=== PATIENT | female | born 1960 | race Caucasian/White ===

== ENCOUNTER 2018-11-05 07:55 | Emergency (ER) | payer OTHER, MEDICAID ==
[~2018-11-05] VITALS: Ht 157.5 cm; Wt 84.1 kg
[~2018-11-05 07:55] MED LIST: CLOP75TA35 PO; DOXY100T2 PO; GUAI-178 PO; HYDR-4383 PO; HYDR12.5 PO; PRAM0.122 PO; TRAM50TA2 PO; ZOLP5TAB8 PO
[2018-11-05 08:33] LABS: BASOPHILS # (AUTO) 0.2 X10'3 (0-0.2); BASOPHILS % (AUTO) 1.3 % (0-1); EOSINOPHILS # (AUTO) 0.3 X10'3 (0-0.9); EOSINOPHILS % (AUTO) 1.4 % (0-6); HEMATOCRIT 47.5 % (35.0-45.0); HEMOGLOBIN 15.6 g/dl (12.0-16.0); LYMPHOCYTES # (AUTO) 3.2 X10'3 (1.1-4.8); LYMPHOCYTES % (AUTO) 17.8 % (21-51); MEAN CORPUSCULAR HGB CONC 32.9 g/dL (33.0-36.5); MEAN CORPUSCULAR VOLUME 82.1 FL (78-98); MEAN PLATELET VOLUME 8.3 FL (7.4-10.4); MONOCYTES # (AUTO) 1.3 X10'3 (0-0.9); NEUTROPHILS # (AUTO) 13.2 X10'3 (1.8-7.7); NEUTROPHILS % (AUTO) 72.5 % (42-75); PLATELET COUNT 329 X10'3 (140-440); RED BLOOD COUNT 5.79 X10'6 (4.20-5.60); RED CELL DISTRIBUTION WIDTH 13.5 % (11.5-14.5); WHITE BLOOD COUNT 18.2 X10'3 (4.5-11.0)
[2018-11-05] MEDS ORDERED: ketorolac trometh inj. 60 MG/2 ML VIAL IM ONE (08:40)
[2018-11-05] MEDS ORDERED: ondansetron 4mg rapidly disintigrating tab PO ONE (08:40)
[2018-11-05] MEDS ORDERED: HYDROcodone/acetaminophen 5mg/325mg tablet PO ONE (08:40)
[2018-11-05] MEDS ORDERED: benzonatate 100mg capsule PO ONE (08:40)
[2018-11-05 08:44] LABS: ALANINE AMINOTRANSFERASE 38 U/L (12-78); ALBUMIN 3.7 G/DL (3.4-5.0); ALBUMIN/GLOBULIN RATIO 0.9 (1.1-1.5); ALKALINE PHOSPHATASE 116 IU/L (46-116); ANION GAP 11 (8-16); ASPARTATE AMINO TRANSFERASE 23 U/L (10-37); BILIRUBIN,TOTAL 0.4 MG/DL (0.1-1.0); BLOOD UREA NITROGEN 13 MG/DL (7-18); BUN/CREATININE RATIO 16.5 (6.6-38.0); CALCIUM 9.5 MG/DL (8.5-10.1); CHLORIDE 96 MMOL/L (99-107); CREATININE 0.79 MG/DL (0.40-0.90); GLUCOSE 154 MG/DL (70-104); POTASSIUM 3.5 MMOL/L (3.5-5.1); SODIUM 133 MMOL/L (135-145); TOTAL PROTEIN 7.7 G/DL (6.4-8.2); eGFR 74 ML/MIN
[2018-11-05 09:23] LABS: LARGE PLATELETS FEW; PLATELET ESTIMATE NORMAL
[2018-11-05] MEDS ORDERED: HYDR-3965 PO (10:01)
[2018-11-05] MEDS ORDERED: ONDA8TAB6 PO (10:01)
[2018-11-05] MEDS ORDERED: BENZ-16 PO (10:01)
[2018-11-05 10:30] VITALS: BP 152/76
== END 2018-11-05 10:50 | disposition home or self-care (01) ==
LOC: ER 07:56
DX: R07.81 Pleurodynia (principal); J06.9 Acute upper respiratory infection, unspecified; Z86.73 Personal history of transient ischemic attack (TIA), and cerebral infarction without residual deficits; Z88.2 Allergy status to sulfonamides; Z88.0 Allergy status to penicillin; Z88.1 Allergy status to other antibiotic agents; Z91.011 Allergy to milk products; Z79.899 Other long term (current) drug therapy
CPT/HCPCS: 36415; 71046; 80053; 83880; 85025; 96372; 99284; J1885

== ENCOUNTER 2019-02-10 15:16 | Observation (INO) | payer OTHER, MEDICAID ==
[~2019-02-10] VITALS: Ht 157.5 cm; Wt 85.1 kg
[~2019-02-10 15:16] MED LIST changes: +ONDA8TAB6 PO
--- NOTE | 2019-02-10 15:28 | NUR ---
Arrived to ED for level 1 stroke alert, bed 3. pt in CT scan. daughter and at bedside. SOC notified of stroke alert [address] states she is back to normal at this time 1550 Dr. Mcadams from SOC for telemedicine consult. NIHSS 0 will proceed as Level 2 stroke.
[2019-02-10 15:50] LABS: BASOPHILS # (AUTO) 0.1 X10'3 (0-0.2); BASOPHILS % (AUTO) 0.6 % (0-1); EOSINOPHILS # (AUTO) 0.3 X10'3 (0-0.9); EOSINOPHILS % (AUTO) 2.8 % (0-6); HEMATOCRIT 43.9 % (35.0-45.0); HEMOGLOBIN 14.3 g/dl (12.0-16.0); LYMPHOCYTES # (AUTO) 2.5 X10'3 (1.1-4.8); LYMPHOCYTES % (AUTO) 24.2 % (21-51); MEAN CORPUSCULAR HEMOGLOBIN 24.9 PG (27.0-31.0); MEAN CORPUSCULAR HGB CONC 32.7 g/dL (33.0-36.5); MEAN CORPUSCULAR VOLUME 76.1 FL (78-98); MEAN PLATELET VOLUME 7.8 FL (7.4-10.4); MONOCYTES # (AUTO) 0.8 X10'3 (0-0.9); NEUTROPHILS # (AUTO) 6.7 X10'3 (1.8-7.7); NEUTROPHILS % (AUTO) 64.4 % (42-75); PLATELET COUNT 278 X10'3 (140-440); RED BLOOD COUNT 5.77 X10'6 (4.20-5.60); RED CELL DISTRIBUTION WIDTH 16.6 % (11.5-14.5); WHITE BLOOD COUNT 10.3 X10'3 (4.5-11.0)
[2019-02-10 16:02] LABS: ALANINE AMINOTRANSFERASE 30 U/L (12-78); ALBUMIN 3.9 G/DL (3.4-5.0); ALBUMIN/GLOBULIN RATIO 0.9 (1.1-1.5); ALKALINE PHOSPHATASE 116 IU/L (46-116); ANION GAP 5 (8-16); ASPARTATE AMINO TRANSFERASE 23 U/L (10-37); BILIRUBIN,TOTAL 0.4 MG/DL (0.1-1.0); BLOOD UREA NITROGEN 7 MG/DL (7-18); BUN/CREATININE RATIO 8.6 (6.6-38.0); CALCIUM 9.6 MG/DL (8.5-10.1); CHLORIDE 98 MMOL/L (99-107); CREATININE 0.81 MG/DL (0.40-0.90); GLUCOSE 103 MG/DL (70-104); POTASSIUM 3.7 MMOL/L (3.5-5.1); SODIUM 134 MMOL/L (135-145); TOTAL CARBON DIOXIDE 30.9 MMOL/L (24-32); TOTAL PROTEIN 8.2 G/DL (6.4-8.2); eGFR 72 ML/MIN
[2019-02-10 16:03] LABS: PARTIAL THROMBOPLASTIN TIME 29 SECONDS (22-32)
[2019-02-10 16:05] LABS: TROPONIN I < 0.04 NG/ML (0.0-0.05)
[2019-02-10] MEDS ORDERED: metoprolol tartrate 1mg/ml inj IV ONE (16:10)
--- NOTE | 2019-02-10 16:39 | NUR ---
PT STATES HER LEFT FACE IS SLIGHTLY NUMB. NO OTHER SYMPTOMS. INSTRUCTED TO NOTIFY NURSE OF ANY NEW CHANGES. HENRIQUE RICHEY NOTIFIED .
[2019-02-10] MEDS ORDERED: aspirin 81mg tab.chew PO ONE (16:45)
[2019-02-10] MEDS ORDERED: magnesium hydroxide 30ml (MOM) UD suspension PO PRN (16:50)
[2019-02-10] MEDS ORDERED: potassium CL 10mEq/100ml bag 100 ML IV PRN (16:50)
[2019-02-10] MEDS ORDERED: mag hydrox/Alum hydrox/simeth 30ml oral suspension PO PRN (16:50)
[2019-02-10] MEDS ORDERED: potassium Cl 20 mEq SR tablet PO PRN ×2 (16:50)
[2019-02-10] MEDS ORDERED: potassium Cl 40MEQ/NS 500ml 500 ML IV PRN (16:50)
[2019-02-10] MEDS ORDERED: magnesium 2GM in 50ml NS 50 ML IV PRN (16:50)
[2019-02-10] MEDS ORDERED: magnesium 4gm in 100ml NS 100 ML IV PRN (16:50)
[2019-02-10] MEDS ORDERED: ondansetron/PF 4mg/2ml inj IV PRN (16:50)
[2019-02-10] MEDS ORDERED: acetaminophen 325mg tablet PO PRN ×2 (16:50)
[2019-02-10] MEDS ORDERED: magnesium Cl slow-release 64mg tablet PO PRN (16:50)
--- NOTE | 2019-02-10 16:55 | NUR ---
PT. STATES THAT HER "HAND IS FEELING FUNNY"
--- NOTE | 2019-02-10 17:04 | NUR ---
CALLED BACK TO ROOM FOR NUMBNESS TO LEFT ARM. SLIGHT DRIFT TO LEFT ARM WITH NUMBNESS TO FACE AND ARM. CALL INTO SOC, NURSE STARTING 2ND IV, STROKE BOX TO ROOM.
--- NOTE | 2019-02-10 17:19 | NUR ---
BEING EVALUATED BY DR. MARTINEZ SOC. TPA MIXED AND READY.
[2019-02-10] MEDS ORDERED: iohexol 350MG/ML 100ml bottle IV ONE (17:34)
--- NOTE | 2019-02-10 17:35 | NUR ---
TO CT FOR CTA RECOMMENDED BY DR. MARTINEZ. HE WOULD LIKE US TO HOLD OFF ON TPA
--- NOTE | 2019-02-10 17:55 | NUR ---
RETURN FROM CT. PT HAS NUMBNESS TO LEFT SIDE FACE ONLY.
--- NOTE | 2019-02-10 18:36 | NUR ---
CALLED TO GIVE REPORT AT 1823 WAS PUT ON HOLD FOR 10 MINUTES, CALLED BACK AT 1834 AND ATTEMPTED TO GIVE REPORT A 2ND TIME, BUT WAS TOLD SHE WOULD CALL IN 5 MINUTES. ATTEMPTED TO GIVE A BEDSIDE REPORT, BUT WAS TOLD SHE WOULD CALL BACK.
[2019-02-10] MEDS ORDERED: nicotine prolacrilex 2mg gum BC PRN (18:45)
[2019-02-10 19:15] VITALS: BP 123/77
--- NOTE | 2019-02-10 20:05 | NUR ---
pt c/o increasing numbness on face left side of face to lip and left arm numb and tingling. called stroke nurse - note VSS and blood sugar 109. daughter at bedside. clarified home meds with daughter. will get order from hospitalist
[2019-02-10] MEDS ORDERED: OMEP40CA37 PO (20:14)
[2019-02-10] MEDS ORDERED: ALBU18HF2 INH (20:14)
[2019-02-10] MEDS ORDERED: BECL7.3A INH (20:14)
[2019-02-10 20:23] VITALS: BP 157/93
--- NOTE | 2019-02-10 20:53 | NUR ---
Called to [facility]22[facility] for worsening stroke symptoms. pt reported that left face, and arm are numb and heavy. Last normal 1630. SOC consult with Dr. Grover. Her only symptom now is numbness to left side face. She had ASA in ED, and CTA was read as normal, no large vessel occlusion.
[2019-02-10 21:00] VITALS: BP 136/81
[2019-02-10] MEDS ORDERED: atorvastatin 20mg tablet PO SCH (21:00)
[2019-02-10] MEDS ORDERED: clopidogrel 75mg tablet PO SCH (21:10)
[2019-02-10] MEDS ORDERED: pantoprazole 40mg Tablet.DR PO SCH (21:16)
[2019-02-10] MEDS ORDERED: albuterol 2.5 MG/3 ML nebule NEB PRN (21:20)
[2019-02-10 22:00] VITALS: BP 144/72
--- NOTE | 2019-02-10 22:13 | NUR ---
Dr. Stover called b/c stroke nurse paged after last telemed at 2100. updated MD on patient status. orders received for prn IVF if sbp less 110 and prn ativan for mri in am. ok to d/c lipitor for allergy and benadryl prn itching. EEG also ordered for am
[2019-02-10] MEDS ORDERED: diphenhydrAMINE 25mg capsule PO PRN (22:15)
[2019-02-10] MEDS ORDERED: LORazepam 2 mg/ml vial IV PRN (22:15)
[2019-02-11 02:00] VITALS: BP 130/67
[2019-02-11 06:11] LABS: BASOPHILS # (AUTO) 0.1 X10'3 (0-0.2); BASOPHILS % (AUTO) 0.8 % (0-1); EOSINOPHILS # (AUTO) 0.4 X10'3 (0-0.9); EOSINOPHILS % (AUTO) 3.9 % (0-6); HEMATOCRIT 38.8 % (35.0-45.0); HEMOGLOBIN 13.2 g/dl (12.0-16.0); LYMPHOCYTES # (AUTO) 2.6 X10'3 (1.1-4.8); LYMPHOCYTES % (AUTO) 23.5 % (21-51); MEAN CORPUSCULAR HEMOGLOBIN 25.7 PG (27.0-31.0); MEAN CORPUSCULAR VOLUME 75.6 FL (78-98); MEAN PLATELET VOLUME 7.8 FL (7.4-10.4); MONOCYTES % (AUTO) 9.2 % (2-12); NEUTROPHILS # (AUTO) 6.9 X10'3 (1.8-7.7); NEUTROPHILS % (AUTO) 62.6 % (42-75); PLATELET COUNT 279 X10'3 (140-440); RED BLOOD COUNT 5.14 X10'6 (4.20-5.60)
--- NOTE | 2019-02-11 06:28 | NUR ---
Report given to Ysabel CHILD.
[2019-02-11 06:32] LABS: ALBUMIN 3.6 G/DL (3.4-5.0); ANION GAP 8 (8-16); BLOOD UREA NITROGEN 10 MG/DL (7-18); CALCIUM 9.6 MG/DL (8.5-10.1); CHLORIDE 99 MMOL/L (99-107); CHOL/HDL RATIO 8.6 (0.00-4.99); CHOLESTEROL 189 MG/DL (0-200); CREATININE 0.77 MG/DL (0.40-0.90); GLUCOSE 115 MG/DL (70-104); HDL CHOLESTEROL 22 MG/DL (35-60); LDL CHOLESTEROL 139 MG/DL (50-100); POTASSIUM 3.9 MMOL/L (3.5-5.1); SODIUM 135 MMOL/L (135-145); TOTAL CARBON DIOXIDE 27.9 MMOL/L (24-32); TRIGLYCERIDES 170 MG/DL (20-135); eGFR 77 ML/MIN
[2019-02-11 07:00] LABS: HEMOGLOBIN A1C 6.7 % (4.5-6.2)
[2019-02-11] MEDS ORDERED: budesonide 0.5mg/2ml UD nebule IH SCH (08:00)
[2019-02-11] MEDS ORDERED: K and/or MAG REPLACEMENT MC SCH (08:00)
[2019-02-11] MEDS ORDERED: enoxaparin 40mg/0.4ml syringe SQ SCH (08:00)
[2019-02-11] MEDS ORDERED: aspirin 81mg tablet.DR PO SCH (08:00)
[2019-02-11] MEDS ORDERED: pneumococcal 23-VAL P-sac vacc 25 mcg/0.5ml vial IMVAC ONE (10:00)
[2019-02-11] MEDS ORDERED: ASPI-1265 PO (11:59)
[2019-02-11] MEDS ORDERED: SIMV20TA5 PO (11:59)
--- NOTE | 2019-02-11 12:30 | NUR ---
Pt DC home w/daughter. All DC paperwork signed. All recap paperwork sent home w/pt. [facility] Pt denies pain, SOB, resp distress, N/V vertigo at DC. pt escorted BELL in by [facility] staff. Pt transferred safely into personal vehicle.
[2019-02-11] MEDS ORDERED: aspirin 81mg tab.chew PO SCH (21:00)
== END 2019-02-11 13:00 | disposition home or self-care (01) ==
LOC: ER 15:16 → ORTHO 4S 19:12 → CMPBEDREQ 19:41
PROVIDERS: ADMIT Hospitalist; ATTEND Hospitalist
DX: I63.9 Cerebral infarction, unspecified (principal); R47.01 Aphasia; R53.1 Weakness; I10 Essential (primary) hypertension; F17.210 Nicotine dependence, cigarettes, uncomplicated; Z60.9 Problem related to social environment, unspecified; Z88.0 Allergy status to penicillin; Z88.2 Allergy status to sulfonamides; Z88.1 Allergy status to other antibiotic agents; Z91.011 Allergy to milk products; Z79.899 Other long term (current) drug therapy
CPT/HCPCS: 36415; 70450; 70496; 70498; 70544; 70551; 71045; 80048; 80053; 80061; 82948; 83036; 83735; 84484; 85025; 85610; 85730; 87070; 93005; 94640; 94760; 96372; 96374; 99291; G0378; J2060; Q0163; Q9967; J1650

== ENCOUNTER 2022-11-09 00:09 | Emergency (ER) | payer OTHER, MEDICAID ==
[~2022-11-09] VITALS: Ht 157.5 cm; Wt 85.0 kg
[~2022-11-09 00:09] MED LIST changes: +ALBU18HF2 INH; +ASPI-1265 PO; +BECL7.3A INH; +CLOP75TA34 PO; -CLOP75TA35 PO; -DOXY100T2 PO; -GUAI-178 PO; -HYDR-4383 PO; +OMEP40CA21 PO; -ONDA8TAB6 PO; -TRAM50TA2 PO
[2022-11-09 00:31] LABS: BASOPHILS # (AUTO) 0.1 X10'3 (0-0.2); BASOPHILS % (AUTO) 1.1 % (0-1); EOSINOPHILS # (AUTO) 0.4 X10'3 (0-0.9); EOSINOPHILS % (AUTO) 3.1 % (0-6); HEMATOCRIT 39.1 % (35.0-45.0); HEMOGLOBIN 12.9 g/dl (12.0-16.0); LYMPHOCYTES # (AUTO) 2.8 X10'3 (1.1-4.8); LYMPHOCYTES % (AUTO) 23.4 % (21-51); MEAN CORPUSCULAR HEMOGLOBIN 23.7 PG (27.0-31.0); MEAN CORPUSCULAR HGB CONC 33.1 g/dL (33.0-36.5); MEAN CORPUSCULAR VOLUME 71.5 FL (78-98); MEAN PLATELET VOLUME 7.4 FL (7.4-10.4); MONOCYTES # (AUTO) 0.8 X10'3 (0-0.9); NEUTROPHILS # (AUTO) 7.9 X10'3 (1.8-7.7); NEUTROPHILS % (AUTO) 65.4 % (42-75); PLATELET COUNT 322 X10'3 (140-440); RED BLOOD COUNT 5.47 X10'6 (4.20-5.60); RED CELL DISTRIBUTION WIDTH 15.7 % (11.5-14.5); WHITE BLOOD COUNT 12.1 X10'3 (4.5-11.0)
[2022-11-09 00:41] LABS: ALANINE AMINOTRANSFERASE 48 U/L (12-78); ALBUMIN 3.8 G/DL (3.4-5.0); ALBUMIN/GLOBULIN RATIO 0.9 (1.1-1.5); ALKALINE PHOSPHATASE 124 IU/L (46-116); ANION GAP 6 (8-16); ASPARTATE AMINO TRANSFERASE 43 U/L (10-37); BILIRUBIN,TOTAL 0.6 MG/DL (0.1-1.0); BLOOD UREA NITROGEN 6 MG/DL (7-18); BUN/CREATININE RATIO 7.5 (6.6-38.0); CALCIUM 9.5 MG/DL (8.5-10.1); CHLORIDE 96 MMOL/L (99-107); GLUCOSE 204 MG/DL (70-104); POTASSIUM 3.1 MMOL/L (3.5-5.1); SODIUM 133 MMOL/L (135-145); TOTAL CARBON DIOXIDE 31.4 MMOL/L (24-32); TOTAL PROTEIN 8.1 G/DL (6.4-8.2); eGFR 72 ML/MIN
[2022-11-09] MEDS ORDERED: dexamethasone 4mg tablet PO ONE (02:00)
[2022-11-09] MEDS ORDERED: ipratropium/albuterol 3ml nebule NEB ONE (02:00)
[2022-11-09] MEDS ORDERED: potassium Cl 20 mEq SR tablet PO ONE (02:00)
[2022-11-09 03:09] VITALS: BP 138/76
== END 2022-11-09 03:11 | disposition home or self-care (01) ==
LOC: ER 00:10
DX: R07.89 Other chest pain (principal); E87.6 Hypokalemia; J44.9 Chronic obstructive pulmonary disease, unspecified; F17.200 Nicotine dependence, unspecified, uncomplicated; Z88.0 Allergy status to penicillin; Z88.1 Allergy status to other antibiotic agents; Z88.2 Allergy status to sulfonamides; Z88.4 Allergy status to anesthetic agent; Z91.011 Allergy to milk products
CPT/HCPCS: 36415; 71045; 80053; 83735; 83880; 84484; 85025; 93005; 94640; 99285

== ENCOUNTER 2025-02-26 14:59 | Outpatient (CLI) | payer MEDICARE, OTHER ==
[~2025-02-26 14:59] MED LIST changes: +L. R1CAP4 PO
--- NOTE | 2025-02-27 07:12 | RADIOLOGY REPORT ---
ULTRASOUND SOFT TISSUE HEAD AND NECK CLINICAL INDICATION: SKIN LESION TECHNIQUE: Multiple real time sonographic images of the neck were obtained. COMPARISON: None. FINDINGS: There is a lymph node measuring 0.8 x 0.6 x 1.4 cm in the left neck. Preservation of the fatty hilum consistent with normal morphology. No mass or fluid seen in the right or left side of the neck. IMPRESSION: 1. No mass or fluid in the neck. 1.4 cm lymph node with preservation of the fatty hilum, morphologica lly within normal limits.
== END 2025-02-26 23:59 | disposition home or self-care (01) ==
LOC: US 14:59 → MERGE 15:00 → US 23:59
PROVIDERS: ATTEND Physician Assistant
DX: R59.0 Localized enlarged lymph nodes (principal); L98.9 Disorder of the skin and subcutaneous tissue, unspecified
CPT/HCPCS: 76881